=== PATIENT | male | born 1960 | race Two or more races ===

== ENCOUNTER → 2019-11-16 | Outpatient (CLI) | payer OTHER | END | disposition home or self-care (01) | LOC: LABPAT 10:42 | PROVIDERS: ATTEND Orthopaedic Surgery | DX: Z01.812 Encounter for preprocedural laboratory examination (principal) | CPT/HCPCS: 87070 ==

== ENCOUNTER 2019-11-28 06:11 | Day surgery (SDC) | payer OTHER ==
[2019-11-24 10:40] VITALS: BMI 36.3
--- NOTE | 2019-11-27 11:42 | HP ---
HISTORY AND PHYSICAL CHIEF COMPLAINT: Left knee pain. HISTORY OF PRESENT ILLNESS: The patient is a 59-year-old male who presents with progressive left knee pain for the past several years. It has worsened recently. He has tried medications in addition to injections without much relief. He has tried home exercises, anti-inflammatories, and activity modifications for over 6 months. He notes persistence of his symptoms despite extensive treatment. PAST MEDICAL HISTORY: Significant for hypertension, obesity, and alcoholism. PAST SURGICAL HISTORY: Significant for previous shoulder surgery. CURRENT MEDICATIONS: Lisinopril. He denies drug allergies. FAMILY HISTORY: Significant for heart disease. SOCIAL HISTORY: Significant for previous alcohol abuse in addition to daily tobacco use. REVIEW OF SYSTEMS: Sixteen point review of systems otherwise reviewed and is noncontributory. PHYSICAL EXAMINATION: On examination, the patient is approximately 5 foot 10, 250 pounds of endomorphic habitus. HEENT exam is nonfocal. NECK: Supple. He has painless passive motion of his left hip. Straight leg raise is negative. Active motion left knee -10 to 110 degrees of flexion. He is tender about the medial joint line. He has a mild effusion. Collaterals are stable, Yen is negative, Chio's is equivocal. His distal neurovascular appears intact in the left lower extremity. Weightbearing notch lateral and merchant views of the left knee obtained in the office show severe joint space narrowing with [id number] changes. There is significant spurring and subchondral sclerosis. IMPRESSION: 1. Left knee severe tricompartmental osteoarthrosis. 2. History of alcoholism. RECOMMENDATIONS: I talked to the patient at length regarding his condition and in addition to treatment options. He remains quite symptomatic despite extensive conservative measures. After thorough discussion, he opts to proceed with surgery. We will plan to proceed with left total knee arthroplasty. Risks and benefits were discussed at length in layman's terms. We will institute DVT prophylaxis postoperatively. The patient underwent preoperative medical evaluation by Dr. Mike Muñoz. MMSHERIDANL / NOAHN: [id number] /
[~2019-11-28 06:11] MED LIST: ACETAMINOPHEN TAB 500 MG TAB PO ONE; LACTATED RINGERS 1,000 ML IV SCH; MELOXICAM 7.5 MG TAB PO ONE; ROPIVACAINE 246.25 MG, EPINEPHrine 0.5 MG, KETOROLAC 30 MG, cloNIDine HCL/PF 80 MCG, WA... MISCELLANE ONE; TRANEXAMIC ACID 1,000 MG in SODIUM CHLORIDE 0.9% 100 ML IVPB ONE
[2019-11-28] MEDS ORDERED: ACETAMINOPHEN TAB 500 MG TAB ONE (06:52)
[2019-11-28 07:11] VITALS: RESP 16
[2019-11-28] MEDS ORDERED: ONDANSETRON 4 MG/2 ML VIAL ONE (07:14)
[2019-11-28] MEDS ORDERED: ONDANSETRON 4 MG/2 ML VIAL IVP ONE (07:21)
[2019-11-28] MEDS ORDERED: MIDAZOLAM 2 MG/2 ML VIAL IV ONE (07:39)
[2019-11-28] MEDS ORDERED: fentaNYL (PF) 50 MCG/ML 2 ML AMP IV ONE (07:39)
[2019-11-28] MEDS ORDERED: SODIUM CHLORIDE 0.9% 100 ML BAG ONE (07:53)
[2019-11-28] MEDS ORDERED: PROPOFOL 10 MG/ML 20 ML VIAL IV ONE (07:53)
[2019-11-28] MEDS ORDERED: PHENYLEPHRINE-0.9% NACL SYG 1 MG/10 ML SYRINGE ONE (07:53)
[2019-11-28] MEDS ORDERED: MIDAZOLAM 2 MG/2 ML VIAL ONE (07:53)
[2019-11-28] MEDS ORDERED: fentaNYL (PF) 50 MCG/ML 2 ML AMP ONE (07:53)
[2019-11-28] MEDS ORDERED: TRANEXAMIC ACID 1,000 MG/10 ML VIAL ONE (07:53)
--- NOTE | 2019-11-28 08:22 | P.ANPRN ---
Procedure Note - Anesthesia - Nerve Block Performed Left Adductor Canal Infusion Time Out Performed: Yes ([id number]) Date of Procedure: 11/28/19 Procedure Start Time: :38 Procedure Stop Time: 07:50 Location of Patient: PreOp Indication: Acute Post-Operative Pain, Dx/Pain Location (left knee pain), Requested by Surgeon Sedation Type: Sedate with meaningful contact maintained Preparation: Sterile Prep Position: Supine Catheter: Indwelling Needle Types: Pajunk Needle Gauge: 21 Ultrasound used to visualize needle placement: Yes Ultrasound used to observe medication spread: Yes Injectate: 0.5% Ropivacaine (see comment for volume) (20ml) Blood Aspirated: No Pain Paresthesia on Injection Noted: No Resistance on Injection: Normal Image Stored and Saved: Yes Events: Uneventful and Well Tolerated
[2019-11-28] MEDS ORDERED: ceFAZolin 3,000 MG in SODIUM CHLORIDE 0.9% IRRIGATIO 3,000 ML IRRIGATION ONE (08:23)
[2019-11-28] MEDS ORDERED: HYDROmorphone 1 MG/ML 1 ML SYRINGE IVP PRN (09:46)
[2019-11-28] MEDS ORDERED: HYDROmorphone 0.5 MG/0.5 ML SYRINGE IVP PRN (09:46)
[2019-11-28] MEDS ORDERED: NALOXONE 0.4 MG/ML 1 ML VIAL IV PRN (09:46)
[2019-11-28] MEDS ORDERED: HYDROcodone/APAP 7.5-325MG 1 EACH TAB PO PRN ×2 (09:46→09:48)
[2019-11-28] MEDS ORDERED: MAGNESIUM HYDROXIDE 2,400 MG/10 ML CUP PO PRN (09:46)
[2019-11-28] MEDS ORDERED: traMADol 50 MG TAB PO PRN (09:46)
[2019-11-28] MEDS ORDERED: ONDANSETRON 4 MG/2 ML VIAL IVP PRN (09:46)
[2019-11-28] MEDS ORDERED: ACETAMINOPHEN TAB 325 MG TAB PO PRN (09:46)
[2019-11-28] MEDS ORDERED: LACTATED RINGERS 1,000 ML IV ONE (09:56)
[2019-11-28 10:13] VITALS: TEMP 96.8
--- NOTE | 2019-11-28 10:15 | P.OP ---
Date of Procedure: 11/28/19 Preoperative Diagnosis: Left knee severe tricompartmental osteoarthrosis Postoperative Diagnosis: Same Procedure(s) Performed: Left total knee arthroplastycementedposterior stabilized Implants: Depuy Attune size 7 cemented femoral component, size 6 cemented tibial component, 10 mm articular surface, 38 mm cemented patellar component. This is a posterior stabilized implant. Anesthesia: regional, local, spinal Surgeon: Bruce Jones Shop Lead #1: Rai Cheng Estimated Blood Loss (ml): 50 Pathology: none sent Condition: stable Disposition: PACU Indications for Procedure: The patient's a 59-year-old male who presents with progressive left knee pain secondary to osteoarthrosis despite conservative measures. A discussion of the risks and benefits of operative intervention versus continued conservative measures was made with patient. He opted to proceed with surgery. Operative risks to include infection, neurovascular injury, development of blood clots, possible component loosening, possible component failure and need for subsequent procedures was discussed. Informed consent was obtained. Operative Findings: As below Description of Procedure: The patient was brought to the operating room, and after induction of spinal anesthesia the left lower extremity was prepped and draped in a normal fashion. The tourniquet was inflated to 270 mm marker. A longitudinal incision extending 3 finger breaths above the superior pole of patella extending to the medial aspect the tibial tubercle was then made. The skin and subcutaneous tissues were divided sharply. Electrocautery was used for hemostasis. A medial parapatellar arthrotomy was performed. The medial soft tissues to include the superficial and deep portions of the medial collateral ligament were elevated subperiosteally. The patella was everted. A portion of the retropatellar fat pad was excised sharply. The anterior cruciate ligament was sacrificed. Blunt retractors were placed. A starting hole was made in the distal femur 1 cm anterior to the posterior cruciate ligament origin. An intramedullary femoral guide was then inserted planning on 5 valgus distal cut with 9 mm distal resection. The cutting block was pinned in place. The distal cut was then made. The posterior referencing sizing guide was utilized. I felt size 7 was most appropriate. 3 of external rotation was built into the system and verified off the trans-epicondylar axis and the posterior condyles. The cutting block was pinned in place. The anterior, posterior, and chamfer cuts then made. Bone fragments were removed. The intercondylar guide was placed and the notch cut was made with a sagittal saw. The bone block was removed in one fragment. The trial component was then placed. There is good anterior to posterior and medial to lateral fit. The distal peg holes were drilled. The trial component was removed. Attention was then paid towards preparing the proximal femur. An extra medullary guide was utilized in line with the tibial shaft and second metatarsal distally. I planned on to mm resection from the medial compartment. The cutting block was pinned in place. The proximal tibial cut was then made. The bone was removed in one fragment. The remnants of the medial and lateral menisci were excised at the capsular junction with electrocautery. The tibia sized most appropriately at size 6. The trial femoral and tibial components were placed along with a 10 mm articular surface. I was able to obtain full flexion and extension with internal and external rotation. After several flexion and extension cycles, the tibial rotation was marked with electrocautery line with the medial one third of the tibial tubercle. Attention was then paid towards preparing the patella. A patella reamer was utilized taking stem to 14 mm of bone stock. A good flush cut was made. The patella sized most appropriately 38 mm. The peg holes were drilled. The trial components placed. I had good patellofemoral tracking with no hands technique. The trial components were then removed. The tibia was prepared in the appropriate rotation with appropriate drill and keel punch. The posterior osteophytes were removed with a curved osteotome. The flexion and extension gaps were checked and felt to be symmetric at 10 mm. A trial components were then removed. The posterior soft tissues were injected with ropivacaine. The bony surfaces were prepared with pulsatile lavage and dried. The tibial component was then cemented place was fully seated. Excess cement was removed. The femoral component cemented place and was fully seated. Excess cement was removed. The trial 10 mm articular surface was placed and the knee was put in full extension. The patella component was cemented place. After the cement had sufficiently hardened, the knee was again taken through a range of motion. Again I was able to obtain full flexion and extension with varus and valgus stress. The trial 10 mm articular surface was removed and the final one inserted. This was fully seated. Care was taken to avoid any soft tissue interposition. Pulsatile lavage was again utilized. The medial parapatellar arthrotomy was closed with #2 Ethibond suture. The tourniquet was deflated with approximately 70 minutes total tourniquet time. Final hemostasis was obtained with the cautery. There was minimal bleeding therefore a deep drain was not placed. The subcutaneous tissues were reapproximated with interrupted 2-0 Vicryl sutures. The skin was reapproximated with 3-0 subcuticular strata fix suture. Skin tape and adhesive was applied. A sterile dressing was applied. The patient was awoken from sedation and transferred to recovery room in good condition. Blood loss was estimated at 50 mL. No complications were incurred. Sponge and needle counts were correct at the end of the case. Nabeel SORTO assisted during the major components of this case to include exposure, bone resection, implantation, and closure.
[2019-11-28] MEDS ORDERED: ROPIVACAINE 0.2%-NS ON-Q PUMP 1,090 MG, EMPTY PAIN BALL 1 EACH MISCELLANE PRN (10:16)
--- NOTE | 2019-11-28 12:10 | XR ---
EXAMINATION TYPE: XR knee limited LT DATE OF EXAM: 11/28/2019 COMPARISON: NONE TECHNIQUE: Two views submitted HISTORY: Post op FINDINGS: There is a prosthetic knee in near anatomic alignment. There is soft tissue edema and emphysema. IMPRESSION: 1. Postoperative change. Appears in near-anatomic alignment. There is a density in the lateral view overlying the subcutaneous tissues anteriorly which be correlated clinically. Difficult to determine if this is superficial to the patient or possibly foreign body.
--- NOTE | 2019-11-28 15:38 | P.DS ---
Providers Date of admission: 11/28/2019 Expected date of discharge: 11/28/19 Attending physician: Bruce Jones Primary care physician: Stated None Hospital Course: Date of admission: 11/28/2019 Date of discharge: 11/28/2019 Admission diagnosis: Status post left total knee arthroplasty Discharge diagnosis: Same Attending physician: Dr. Jones Surgical procedures: Left total knee arthroplasty Brief history: Patient is a 59-year-old male with a history of progressive primary left knee osteoarthritis. At this point patient has failed conservative treatment measures and has opted to proceed with a elective left total knee arthroplasty. Hospital course: Details of patient's surgery can be found in operative report. Patient tolerated the procedure well and was subsequently transported to orthopedic floor. Patient's orthopeidc and medical care was provided daily. Patient had daily laboratory tests performed for evaluation of overall blood counts. Patient had daily physical therapy to include strengthening range of motion as well as education with walker ambulation. Patient had daily CPM usage as part of their physical therapy program. Patient was treated with Xarelto for their postoperative DVT prophylaxis during their inpatient stay. Patient was noted to have a relatively uneventful postoperative course. Patient reported satisfactory pain control with oral pain medications by postoperative day 0. Patient showed satisfactory progress with physical therapy. Patient moved steadily through the program and had no difficulty meeting the goals by postoperative day 0. Given patient's otherwise satisfactory course and having met physical therapy goals, plan is to discharge patient home on postoperative day 0. Discharge condition/disposition: Patient will be discharged home in stable condition. Discharge medications: Instructions are given on resumption of patient's normal daily medications per primary care recommendation, in addition patient will be prescribed [place] 7.5 mg/325 mg, tramadol 50 mg, Colace 100 mg, Eliquis 2.5mg. Discharge instructions: 1. Wound care and infection precautions, keep incision dry and covered while showering, no lotions, creams, moisturizers. No soaking, tubs, pools, hottubs. Do not scrub over the incision. 2. Weight-bear as tolerated with walker / cane until follow-up. 3. Ice and elevate when necessary. Do not exceed 20 minutes per hour with ice pack. 4. Utilize compression sleeve until seen at first follow up appointment. 5. Visiting nursing care. 6. Home physical therapy including home CPM. 7. Pain meds and anticoagulants per prescription. 8. Pain medication has potential to cause constipation. Increase oral fluid and fiber intake. Contact primary care provider if you have not had a bowel movement within 48 hours after discharge 9. No anti-inflammatory medication until discussed at first post operative visit, this including Motrin, Aleve, Mobic, Diclofenac. 10. Follow up in office at 2 weeks postop with Nabeel Cheng PA-C 11. Follow up with your primary care doctor 7-10 days after discharge. 12. Contact [facility] with any questions, . Procedures: Left total knee arthroplasty Patient Condition at Discharge: Good Plan - Discharge Summary Discharge Rx Participant: Yes New Discharge Prescriptions: New Docusate [Colace] 100 mg PO DAILY #30 capsule HYDROcodone/APAP 7.5-325MG [[place] 7.5] 1 - 2 each PO Q6HR PRN #56 tab PRN Reason: Pain traMADol HCl [Ultram] 50 mg PO Q6H PRN #28 tab PRN Reason: Pain Apixaban [Eliquis] 2.5 mg PO BID #60 tab No Action Lisinopril-Hctz 20-25 mg [Zestoretic 20-25] 1 tab PO DAILY Discharge Medication List Lisinopril-Hctz 20-25 mg [Zestoretic 20-25] 1 tab PO DAILY 11/24/19 [History] Apixaban [Eliquis] 2.5 mg PO BID #60 tab 11/28/19 [Rx] Docusate [Colace] 100 mg PO DAILY #30 capsule 11/28/19 [Rx] HYDROcodone/APAP 7.5-325MG [[place] 7.5] 1 - 2 each PO Q6HR PRN #56 tab 11/28/19 [Rx] traMADol HCl [Ultram] 50 mg PO Q6H PRN #28 tab 11/28/19 [Rx] Follow up Appointment(s)/Referral(s): [facility], [NON-STAFF] - Rai Cheng PAC [PHYSICIAN HRIS ANALYST] - 2 Weeks Patient Instructions/Handouts: *Surgery [facility] - (Anesthesia) Discharge Instructions Outpatient Surgery, Precautions after Total Joint Replacement Surgery (DC), Knee Replacement (DC) Activity/Diet/Wound Care/Special Instructions: Orthopedic Discharge Instructions: 1. Wound care and infection precautions, keep incision dry and covered while showering, no lotions, creams, moisturizers. No soaking, pools, hot tubs. Do not scrub over incision. 2. Weight-bear as tolerated with walker / cane until follow-up. 3. Ice and elevate when necessary. Do not exceed 20 minutes per hour with ice pack. 4. Utilize compression sleeve until seen at first follow up appointment. 5. Pain meds and anticoagulants per prescription. 6. Pain medication has potential to cause constipation. Increase oral fluid and fiber intake. Contact primary care provider if you have not had a bowel movement within 48 hours after discharge. 7. No anti-inflammatory medication until discussed at first post operative visit, this including Motrin, Aleve, Mobic, Diclofenac. 8. Follow up in office at 2 weeks postop with Nabeel Cheng PA-C 9. Follow up with your primary care doctor 7-10 days after discharge. 10. Contact [facility] with any questions, [phone]. 11. *Please call [facility] once home to arrange delivery of Continuous Passive Motion Machine (CPM) to your sister's house: [phone]* Discharge Disposition: HOME WITH HOME HEALTH SERVICES
[2019-11-28 15:42] VITALS: BP 134/63; PULSE 67
[2019-11-28] MEDS ORDERED: ceFAZolin 3 GM in SODIUM CHLORIDE 0.9% 100 ML IVPB SCH (16:00)
[2019-11-28] MEDS ORDERED: SENNOSIDES-DOCUSATE SODIUM 1 EACH TAB PO SCH (21:00)
[2019-11-29] MEDS ORDERED: RIVAROXABAN 10 MG TAB PO SCH (09:00)
== END 2019-11-28 16:28 | disposition home health service (06) ==
LOC: OR 06:11 → 4SSUR 13:40 → 2ORMAIN 14:11 → OR 16:28
PROVIDERS: ATTEND Orthopaedic Surgery
DX: M17.0 Bilateral primary osteoarthritis of knee (principal); I10 Essential (primary) hypertension; M19.041 Primary osteoarthritis, right hand; E78.5 Hyperlipidemia, unspecified; E66.9 Obesity, unspecified; F10.11 Alcohol abuse, in remission; F17.210 Nicotine dependence, cigarettes, uncomplicated; Z79.899 Other long term (current) drug therapy; Z98.890 Other specified postprocedural states; Z68.38 Body mass index [BMI] 38.0-38.9, adult
CPT/HCPCS: 97110; 97161; 64448; 76942; 88300; 73560; 27447; C1713; C1776; J2250; J0171; J0690 ×2; J2405; J3010; J1885; J2795 ×2; J0735

== ENCOUNTER → 2020-02-27 | Outpatient (CLI) | payer OTHER ==
--- NOTE | 2020-02-27 16:22 | XR ---
Bilateral hands HISTORY: Arthritis 2 views each hand are submitted. Bone mineralization and alignment are maintained. There is hypertrophic change present primarily at t he metacarpophalangeal joints of the second and third digits of the right hand with some associated j oint space loss, soft tissue swelling. Some spurring also noted the distal second and third metacarpa ls of the dredge hand with remodeling at the third metacarpophalangeal joint, some joint space loss a nd soft tissue swelling. Some joint space loss present at the intercarpal region of the scapholunate trapezium of the right wrist. IMPRESSION: Findings consistent with osteoarthritis.
== END | disposition home or self-care (01) ==
LOC: RAD 15:35
PROVIDERS: ATTEND Family Medicine
DX: M79.641 Pain in right hand (principal); M79.642 Pain in left hand